=== PATIENT | male | born 1935 | race Caucasian/White ===

== ENCOUNTER 2016-11-24 08:58 | Outpatient (CLI) | payer MEDICARE, OTHER ==
[2016-11-24 12:22] LABS: #Basophils 0.1 thou/uL (0.0-0.2); #Eosinphils 0.2 thou/uL (0.0-0.7); #Lymphocytes 1.5 thou/uL (1.20-3.40); #Monocytes 0.6 thou/uL (0.11-0.59); #Neutrophils 4.4 thou/uL (1.40-6.50); %Basophils 0.9 % (0.0-1.0); %Lymphocytes 21.9 % (21.0-51.0); %Monocytes 8.3 % (0.0-10.0); Hematocrit 43.3 % (42.0-52.0); Mean Platelet Volume 8.3 fL (7.4-10.4); Red Blood Cell (RBC) Count 4.58 mill/uL (4.70-6.10); White Blood Cell (WBC) Count 6.7 thou/uL (4.8-10.8)
[2016-11-24 12:31] LABS: ALT (SGPT) 46 U/L (0-55); AST (SGOT) 43 U/L (5-34); Alkaline Phosphatase 84 U/L (40-150); Anion Gap 16 mmol/L (10-20); BUN (Urea Nitrogen) 30 mg/dL (8.4-25.7); Bilirubin, Total 0.7 mg/dL (0.2-1.2); Calc. Creatinine Clearance 0 mL/min (70-130); Calcium 9.4 mg/dL (7.8-10.44); Carbon Dioxide 26 mmol/L (23-31); Chloride 107 mmol/L (98-107); Estimated GFR-MDRD 41; Globulin 2.4 g/dL (2.4-3.5); LDL Cholesterol, Calculated 70 mg/dL; Protein, Total 6.5 g/dL (5.8-8.1)
== END 2016-11-24 08:59 ==
LOC: NAVSJIPCSP 08:58
PROVIDERS: ATTEND Internal Medicine Cardiovascular Disease
DX: E78.00 Pure hypercholesterolemia, unspecified (principal)
CPT/HCPCS: 36415; 80053; 80061; 85025

== ENCOUNTER 2017-06-06 08:18 | Outpatient (CLI) | payer MEDICARE | END 2017-06-06 08:19 | disposition home or self-care (01) | LOC: NAV LAB 08:18 | PROVIDERS: ATTEND Urology | DX: N40.1 Benign prostatic hyperplasia with lower urinary tract symptoms (principal) | CPT/HCPCS: 36415; 84153 ==

== ENCOUNTER 2018-06-13 08:50 | Outpatient (CLI) | payer MEDICARE | END 2018-06-13 08:51 | disposition home or self-care (01) | LOC: NAV EKG 08:50 | PROVIDERS: ATTEND Ophthalmology | DX: Z01.818 Encounter for other preprocedural examination (principal); H57.9 Unspecified disorder of eye and adnexa | CPT/HCPCS: 93005 ==

== ENCOUNTER 2021-07-29 16:35 | Outpatient (CLI) | payer MEDICARE, BC | END 2021-07-29 16:36 | disposition home or self-care (01) | LOC: NAV RAD 16:35 | PROVIDERS: ATTEND Family Medicine | DX: R05.9 Cough, unspecified (principal) | CPT/HCPCS: 71046 ==

== ENCOUNTER 2022-09-13 11:36 | Outpatient (CLI) | payer MEDICARE, BC | END 2022-09-13 11:37 | disposition home or self-care (01) | LOC: NAV RAD 11:36 | PROVIDERS: ATTEND Family Medicine | DX: M54.2 Cervicalgia (principal); M47.812 Spondylosis without myelopathy or radiculopathy, cervical region | CPT/HCPCS: 72040 ==

== ENCOUNTER 2022-10-03 12:38 | Outpatient (CLI) | payer MEDICARE, BC | END 2022-10-03 12:39 | disposition home or self-care (01) | LOC: NAV RAD 12:38 | PROVIDERS: ATTEND Family Medicine | DX: M53.2X1 Spinal instabilities, occipito-atlanto-axial region (principal); M47.812 Spondylosis without myelopathy or radiculopathy, cervical region | CPT/HCPCS: 72125 ==